=== PATIENT | female | born 1935 | race Caucasian/White ===

== ENCOUNTER 2020-11-09 16:45 | Inpatient (IN) | payer OTHER, MEDICARE ==
[2020-11-09 20:07] LABS: INR 0.92 (0.83-1.09); PROTHROMBIN TIME (PATIENT) 11.3 SEC (9.7-13.0)
[2020-11-09 20:09] LABS: ACTIVATED PTT 26.3 SECONDS (25.2-36.5)
[2020-11-09 20:20] LABS: POTASSIUM 5.5 mmol/L (3.5-5.1)
[2020-11-09 20:22] LABS: CALCIUM 9.2 mg/dL (8.5-10.1)
[2020-11-09 20:23] LABS: ALBUMIN 3.8 g/dl (3.4-5.0)
[2020-11-09 20:26] LABS: CREATININE 1.2 mg/dL (0.55-1.3)
[2020-11-09 20:27] LABS: BILIRUBIN,TOTAL 0.5 mg/dL (0.2-1)
[2020-11-09 20:28] LABS: TOT PROT 6.7 g/dl (6.4-8.2)
[2020-11-09 20:33] LABS: BASO % 1.4 % (0-2.0); EOS % 2.9 % (0-4.5); HEMOGLOBIN 12.9 GM/dL (10.7-15.3); LYMPH % 21.6 % (8-40); MCH 30.6 pg (25.7-33.7); MCHC 32.2 g/dl (32.0-36.0); MEAN PLT VOLUME 10.6 fl (7.5-11.1); NEUT % 65.1 % (42.8-82.8); PLATELET COUNT 192 K/MM3 (134-434); RBC 4.21 M/mm3 (3.60-5.2); RDW 13.8 % (11.6-15.6); WHITE BLOOD COUNT 8.7 K/mm3 (4.0-10.0)
[2020-11-09 22:06] LABS: CALCIUM 9.6 mg/dL (8.5-10.1)
[2020-11-09 22:07] LABS: BLOOD UREA NITROGEN 29.5 mg/dL (7-18); POTASSIUM 4.3 mmol/L (3.5-5.1)
[2020-11-09 22:10] LABS: CREATININE 1.1 mg/dL (0.55-1.3)
[2020-11-09 22:45] LABS: EPI CELLS 13 /uL (0-25.1); HYALINE CASTS 3 /uL (0-3.1); URINE APPEARANCE CLOUDY; URINE BACTERIA 8181 /uL (0-1359); URINE BILIRUBIN NEGATIVE (NEGATIVE); URINE COLOR YELLOW; URINE GLUCOSE (UA) NEGATIVE (NEGATIVE); URINE KETONE TRACE (NEGATIVE); URINE LEUK ESTERASE 2+ (NEGATIVE); URINE NITRITE POSITIVE (NEGATIVE); URINE PROTEIN TRACE (NEGATIVE); URINE UROBILINOGEN 0.2 mg/dL (0.2-1.0); URINE WBC 265 /uL (0-25.8)
[2020-11-09 23:22] LABS: URINE RBC 34 /uL (0-23.9)
[2020-11-09 23:24] LABS: URINE CRYSTALS NEGATIVE /hpf
[2020-11-09] MEDS ORDERED: ACETAMINOPHEN 325 MG TABLET (FP) PO PRN (23:26)
[2020-11-10 03:44] VITALS: BMI 30.6
[2020-11-10] MEDS: INSULIN SLIDING SCALE (NOVOLOG) 1 VIAL SQ SCH ×4 (06:04→21:37)
[2020-11-10 08:58] LABS: BASO % 1.1 % (0-2.0); EOS % 3.4 % (0-4.5); HEMATOCRIT 38.5 % (32.4-45.2); HEMOGLOBIN 12.9 GM/dL (10.7-15.3); LYMPH % 18.5 % (8-40); MCH 31.4 pg (25.7-33.7); MCHC 33.4 g/dl (32.0-36.0); MEAN CELL VOLUME 93.9 fl (80-96); MEAN PLT VOLUME 10.2 fl (7.5-11.1); MONO % 8.4 % (3.8-10.2); NEUT % 68.6 % (42.8-82.8); PLATELET COUNT 199 K/MM3 (134-434); RDW 13.8 % (11.6-15.6); WHITE BLOOD COUNT 8.7 K/mm3 (4.0-10.0)
[2020-11-10 09:17] LABS: POTASSIUM 4.3 mmol/L (3.5-5.1)
[2020-11-10 09:20] LABS: BLOOD UREA NITROGEN 25.6 mg/dL (7-18)
[2020-11-10 09:23] LABS: MAGNESIUM 1.9 mg/dL (1.8-2.4)
[2020-11-10 09:25] LABS: PHOSPHOROUS 3.6 mg/dL (2.5-4.9)
[2020-11-10] MEDS ORDERED: ACETAMINOPHEN 325 MG TABLET (FP) PO PRN (09:39)
[2020-11-10] MEDS ORDERED: INSULIN (NOVOLOG) ASPART 100 UNITS/ML 10ML VIAL ONE (10:16)
[2020-11-10] MEDS: SODIUM CHLORIDE 0.45% 1,000 ML IV SCH (10:38)
[2020-11-10] MEDS: ENOXAPARIN NA (PORCINE) 40 MG/0.4 ML DISP.SYRIN SQ SCH (10:39)
[2020-11-10] MEDS ORDERED: CEFTRIAXONE 1 GM in DEXTROSE 5%-WATER - 50 ML IVPB SCH (11:45)
[2020-11-10] MEDS: CEFTRIAXONE 1 GM in DEXTROSE 5%-WATER - 50 ML IVPB SCH (18:56)
[2020-11-11] MEDS: INSULIN SLIDING SCALE (NOVOLOG) 1 VIAL SQ SCH ×4 (06:11→22:11)
[2020-11-11] MEDS ORDERED: DEXTROSE 5%-WATER - 50 ML IVPB ONE (08:35)
[2020-11-11] MEDS ORDERED: cefTRIAXone SODIUM 1 GM VIAL ONE (08:35)
[2020-11-11] MEDS: ENOXAPARIN NA (PORCINE) 40 MG/0.4 ML DISP.SYRIN SQ SCH (09:11)
[2020-11-11] MEDS: CEFTRIAXONE 1 GM in DEXTROSE 5%-WATER - 50 ML IVPB SCH (09:11)
[2020-11-11 10:43] LABS: BASO % 1.4 % (0-2.0); EOS % 3.7 % (0-4.5); HEMATOCRIT 36.9 % (32.4-45.2); HEMOGLOBIN 12.3 GM/dL (10.7-15.3); LYMPH % 17.8 % (8-40); MCH 31.2 pg (25.7-33.7); MCHC 33.3 g/dl (32.0-36.0); MEAN CELL VOLUME 93.7 fl (80-96); MEAN PLT VOLUME 10.1 fl (7.5-11.1); MONO % 8.1 % (3.8-10.2); PLATELET COUNT 201 K/MM3 (134-434); RBC 3.94 M/mm3 (3.60-5.2); RDW 13.8 % (11.6-15.6); WHITE BLOOD COUNT 8.4 K/mm3 (4.0-10.0)
[2020-11-11 11:01] LABS: POTASSIUM 4.4 mmol/L (3.5-5.1)
[2020-11-11 11:02] LABS: CALCIUM 8.6 mg/dL (8.5-10.1)
[2020-11-11 11:03] LABS: BLOOD UREA NITROGEN 22.8 mg/dL (7-18)
[2020-11-11 11:04] LABS: MAGNESIUM 1.7 mg/dL (1.8-2.4)
[2020-11-11 11:06] LABS: PHOSPHOROUS 4.1 mg/dL (2.5-4.9)
[2020-11-11] MEDS ORDERED: MAGNESIUM SULF 50% (8.12 MEQ/2 ML-1 GM VIAL) IVPB ONE (13:55)
[2020-11-11] MEDS: SODIUM CHLORIDE 0.45% 1,000 ML IV SCH (17:41)
[2020-11-12] MEDS: INSULIN SLIDING SCALE (NOVOLOG) 1 VIAL SQ SCH ×4 (06:20→22:07)
[2020-11-12] MEDS ORDERED: cefTRIAXone SODIUM 1 GM VIAL ONE (09:46)
[2020-11-12] MEDS ORDERED: DEXTROSE 5%-WATER - 50 ML IVPB ONE (09:47)
[2020-11-12] MEDS: CEFTRIAXONE 1 GM in DEXTROSE 5%-WATER - 50 ML IVPB SCH (09:49)
[2020-11-12] MEDS: ENOXAPARIN NA (PORCINE) 40 MG/0.4 ML DISP.SYRIN SQ SCH (09:49)
[2020-11-12] MEDS: CARBIDOPA/LEVODOPA 25/250 TABLET (FP) PO SCH (22:02)
[2020-11-13] MEDS: INSULIN SLIDING SCALE (NOVOLOG) 1 VIAL SQ SCH ×3 (06:26→18:06)
[2020-11-13] MEDS ORDERED: cefTRIAXone SODIUM 1 GM VIAL ONE (09:15)
[2020-11-13] MEDS ORDERED: PT OWN MED DRAWER 7, Y5N ONE ×3 (09:15→14:39)
[2020-11-13] MEDS ORDERED: DEXTROSE 5%-WATER - 50 ML IVPB ONE (09:16)
[2020-11-13] MEDS: SODIUM CHLORIDE 0.45% 1,000 ML IV SCH (09:54)
[2020-11-13] MEDS: CARBIDOPA/LEVODOPA 25/250 TABLET (FP) PO SCH ×3 (09:54→18:07)
[2020-11-13] MEDS: ENOXAPARIN NA (PORCINE) 40 MG/0.4 ML DISP.SYRIN SQ SCH (09:54)
[2020-11-13] MEDS: CEFTRIAXONE 1 GM in DEXTROSE 5%-WATER - 50 ML IVPB SCH (09:54)
[2020-11-13 15:01] VITALS: BP 145/74; PULSE 65; TEMP 98.6
== END 2020-11-13 21:58 | DRG 57 ==
LOC: JER 16:45 → JERBED 21:01 → J6S 11-10 02:39
PROVIDERS: ADMIT Hospitalist; ATTEND Internal Medicine
DX: G20 Parkinson's disease (principal); N39.0 Urinary tract infection, site not specified; R29.6 Repeated falls; F17.210 Nicotine dependence, cigarettes, uncomplicated; E78.5 Hyperlipidemia, unspecified; I10 Essential (primary) hypertension; E03.9 Hypothyroidism, unspecified; E11.42 Type 2 diabetes mellitus with diabetic polyneuropathy; E86.0 Dehydration
CPT/HCPCS: 36415; 70551-TC; 71045-TC-FY; 72192-TC; 73552-TC-RT-FY; 80048; 80053; 81003; 82607; 82962; 83735; 84100; 84443; 85025; 85610; 85730; 86780; 86850; 86900; 86901; 87086; 87186; 93005; 93010; 97116-GP; 97162-GP; 99285-25; C9803; U0003; U0005

== ENCOUNTER 2021-10-02 13:12 | Emergency (ER) | payer OTHER, MEDICARE ==
[2021-10-02 13:39] VITALS: BMI 32.5
[2021-10-02] MEDS ORDERED: DIPHTH,PERTUSS(ACELL),TET 0.5 ML DISP.SYRIN IM ONE (14:39)
[2021-10-02 17:56] LABS: BASO % 0.7 % (0-2.0); EOS % 0.6 % (0-4.5); HEMATOCRIT 40.5 % (32.4-45.2); HEMOGLOBIN 13.2 GM/dL (10.7-15.3); LYMPH % 16.7 % (8-40); MCH 29.7 pg (25.7-33.7); MCHC 32.7 g/dl (32.0-36.0); MEAN CELL VOLUME 90.9 fl (80-96); MEAN PLT VOLUME 8.6 fl (7.5-11.1); MONO % 6.9 % (3.8-10.2); NEUT % 75.1 % (42.8-82.8); PLATELET COUNT 214 10^3/uL (134-434); RBC 4.46 M/mm3 (3.60-5.2); RDW 14.9 % (11.6-15.6); WHITE BLOOD COUNT 11.7 K/mm3 (4.0-10.0)
[2021-10-02 18:01] LABS: INR 0.95 (0.83-1.09); PROTHROMBIN TIME (PATIENT) 10.9 SEC (9.7-13.0)
[2021-10-02 18:04] LABS: ACTIVATED PTT 28.9 SECONDS (25.2-36.5)
[2021-10-02 18:26] LABS: CALCIUM 9.3 mg/dL (8.5-10.1)
[2021-10-02 18:27] LABS: BLOOD UREA NITROGEN 23.4 mg/dL (7-18); MAGNESIUM 1.9 mg/dL (1.8-2.4)
[2021-10-02 18:30] LABS: CREATININE 1.2 mg/dL (0.55-1.3); PHOSPHOROUS 3.2 mg/dL (2.5-4.9)
[2021-10-02 18:31] LABS: BILIRUBIN,TOTAL 0.5 mg/dL (0.2-1); TOT PROT 7.5 g/dl (6.4-8.2)
[2021-10-02 18:35] VITALS: BP 162/68; PULSE 74; TEMP 98.7
== END 2021-10-02 18:55 | disposition short-term general hospital (02) ==
LOC: JER 13:12
PROC: 3E0234Z Introduction of Serum, Toxoid and Vaccine into Muscle, Percutaneous Approach (ICD-10-PCS; principal; 2021-10-02)
DX: S00.03XA Contusion of scalp, initial encounter (principal); S06.360A Traumatic hemorrhage of cerebrum, unspecified, without loss of consciousness, initial encounter; W05.0XXA Fall from non-moving wheelchair, initial encounter
CPT/HCPCS: 36415; 70450-TC; 71046-TC-FY; 71101-TC-LT-FY; 72125-TC; 72170-TC-FY; 80053; 82962; 83735; 84100; 85025; 85610; 85730; 90471; 90715; 93005; 93010; 99285-25; C9803; U0003; U0005

== ENCOUNTER 2022-01-05 14:42 | Emergency (ER) | payer OTHER, MEDICARE ==
[2022-01-05 14:48] VITALS: TEMP 97.2; BMI 32.1
[2022-01-05] MEDS ORDERED: CEFTRIAXONE 1 GM in DEXTROSE 5%-WATER - 100 ML IVPB ONE (15:50)
[2022-01-05] MEDS ORDERED: ACETAMINOPHEN 500 MG TABLET (FP) PO ONE (15:51)
[2022-01-05] MEDS ORDERED: CEFTRIAXONE 1 GM/50 ML BAG ONE (15:53)
[2022-01-05] MEDS ORDERED: ACETAMINOPHEN 325 MG TABLET (FP) ONE (15:53)
[2022-01-05 16:43] VITALS: BP 119/78; PULSE 99
[2022-01-05] MEDS ORDERED: AMOX TR/POT CLAV 875MG/125MG TABLETS (FP) PO ONE (16:55)
[2022-01-05] MEDS ORDERED: AMOX TR/POT CLAV 875MG/125MG TABLETS (FP) ONE (17:00)
== END 2022-01-05 17:39 | disposition home or self-care (01) ==
LOC: JER 14:42
DX: S50.811A Abrasion of right forearm, initial encounter (principal); W55.03XA Scratched by cat, initial encounter
CPT/HCPCS: 96374; 99284-25

== ENCOUNTER 2022-06-18 09:24 | Emergency (ER) | payer OTHER, MEDICARE ==
[2022-06-18] MEDS ORDERED: CEFTRIAXONE 1,000 MG in DEXTROSE 5%-WATER - 50 ML IVPB ONE (10:25)
[2022-06-18] MEDS ORDERED: cefTRIAXone SODIUM 1 GM VIAL ONE (10:51)
[2022-06-18 10:55] LABS: EPITHELIAL CELLS MODERATE /hpf
[2022-06-18 11:03] LABS: HEMATOCRIT 42.7 % (32.4-45.2); HEMOGLOBIN 13.9 G/dL (10.7-15.3); MCH 30.2 pg (25.7-33.7); MCHC 32.5 g/dl (32.0-36.0); MEAN CELL VOLUME 92.8 fl (80-96); MEAN PLT VOLUME 9.6 fl (7.5-11.1); PLATELET COUNT 212.6 10^3/uL (134-434); RDW 14.5 % (11.6-15.6); WHITE BLOOD COUNT 20.1 10^3/uL (4.0-10.8)
[2022-06-18 11:08] LABS: ALBUMIN 3.8 g/dl (3.4-5.0); BILIRUBIN,TOTAL 0.9 mg/dl (0.2-1); CALCIUM 8.9 mg/dl (8.5-10); CREATININE 1.2 mg/dl (0.55-1.3); TOT PROT 6.8 g/dl (6.4-8.2)
[2022-06-18 11:17] LABS: PLATELET ESTIMATE ADEQUATE
[2022-06-18] MEDS ORDERED: SODIUM CHLORIDE 0.9% 500 ML INFUS.BAG IV ONE (11:20)
[2022-06-18] MEDS ORDERED: ACETAMINOPHEN 1000 MG/100 ML BAG IVPB ONE (11:43)
[2022-06-18] MEDS ORDERED: ACETAMINOPHEN INJECTION 100 ML IVPB ONE ×2 (12:41→23:51)
[2022-06-18 12:51] LABS: VENOUS BASE EXCESS 0.1 mmol/L (-2-2); VENOUS O2 SATURATION 75.9 % (70-80); VENOUS PCO2 61.9 mmHg (38-52); VENOUS PH 7.28 (7.310-7.410)
[2022-06-18] MEDS ORDERED: CARBIDOPA/LEVODOPA 25/250 TABLET (FP) PO SCH (18:00)
[2022-06-18] MEDS: INSULIN SLIDING SCALE (NOVOLOG) 1 VIAL SQ SCH (18:33)
[2022-06-18] MEDS: CARBIDOPA/LEVODOPA 25/250 TABLET (FP) PO SCH (18:37)
[2022-06-18] MEDS ORDERED: ATORVASTATIN CA 10 MG TABLET (FP) PO SCH (22:00)
[2022-06-18] MEDS ORDERED: INSULIN (NOVOLOG) ASPART 100 UNITS/ML 10ML VIAL ONE (23:53)
[2022-06-19] MEDS: CARBIDOPA/LEVODOPA 25/250 TABLET (FP) PO SCH ×2 (00:09→10:45)
[2022-06-19] MEDS: INSULIN SLIDING SCALE (NOVOLOG) 1 VIAL SQ SCH ×3 (00:37→11:15)
[2022-06-19] MEDS: RIVASTIGMINE TARTRATE 1.5 MG CAPSULE PO SCH ×2 (04:02→10:45)
[2022-06-19] MEDS ORDERED: LEVOTHYROXINE NA 75 MCG TABLET (FP) PO SCH ×2 (07:00→10:00)
[2022-06-19 08:05] LABS: HEMATOCRIT 39.7 % (32.4-45.2); HEMOGLOBIN 12.8 G/dL (10.7-15.3); MCH 30.3 pg (25.7-33.7); MCHC 32.2 g/dl (32.0-36.0); MEAN CELL VOLUME 93.9 fl (80-96); MEAN PLT VOLUME 9.9 fl (7.5-11.1); PLATELET COUNT 156.3 10^3/uL (134-434); RBC 4.23 10^6/uL (3.60-5.2); RDW 14.2 % (11.6-15.6); WHITE BLOOD COUNT 16.4 10^3/uL (4.0-10.8)
[2022-06-19 08:13] LABS: ALBUMIN 3.2 g/dl (3.4-5.0); BILIRUBIN,TOTAL 0.8 mg/dl (0.2-1); CALCIUM 8.7 mg/dl (8.5-10); CREATININE 1.1 mg/dl (0.55-1.3); MAGNESIUM 1.7 mg/dL (1.8-2.4); PHOSPHOROUS 3.8 mg/dl (2.5-4.9); TOT PROT 6.3 g/dl (6.4-8.2)
[2022-06-19] MEDS ORDERED: ENOXAPARIN NA (PORCINE) 40 MG/0.4 ML DISP.SYRIN SQ SCH (10:00)
[2022-06-19] MEDS ORDERED: ESCITALOPRAM OXALATE 10 MG TABLET PO SCH (10:00)
[2022-06-19] MEDS ORDERED: CEFTRIAXONE 1 GM in DEXTROSE 5%-WATER - 50 ML IVPB SCH (10:00)
[2022-06-19] MEDS ORDERED: LISINOPRIL 10 MG TABLET PO SCH (10:00)
[2022-06-19] MEDS ORDERED: amLODIPine BESYLATE 5 MG TABLET (FP) PO SCH (10:00)
[2022-06-19] MEDS ORDERED: cefTRIAXone SODIUM 1 GM VIAL ONE (10:58)
[2022-06-19 15:07] VITALS: BP 128/50; PULSE 74; RESP 19; TEMP 98.7
== END 2022-06-19 15:25 | disposition home or self-care (01) ==
LOC: FER 09:24
PROC: 3E0333Z Introduction of Anti-inflammatory into Peripheral Vein, Percutaneous Approach (ICD-10-PCS; principal; 2022-06-18)
PROC: 3E03329 Introduction of Other Anti-infective into Peripheral Vein, Percutaneous Approach (ICD-10-PCS; 2022-06-18)
PROC: 3E03329 Introduction of Other Anti-infective into Peripheral Vein, Percutaneous Approach (ICD-10-PCS; 2022-06-18)
DX: U07.1 COVID-19 (principal); N39.0 Urinary tract infection, site not specified; R41.82 Altered mental status, unspecified
CPT/HCPCS: 36415; 70450-TC; 71045-TC-FY; 80053; 81003; 81015; 82607; 82803; 82962; 83735; 84100; 84439; 84443; 84484; 85027; 87040; 87086; 87186; 93005; 99285-25; C9803-CS; U0003; U0005

== ENCOUNTER 2023-07-17 18:31 | Inpatient (IN) | payer OTHER, MEDICARE ==
[2023-07-17] MEDS ORDERED: methylPREDNISolone NA SUCC 125 MG/2 ML VIAL IVPUSH ONE (18:39)
[2023-07-17] MEDS: ALBUTEROL SO4 2.5/IPRATROPIUM 0.5 INH SOL 3 ML VIAL.NEB. NEB SCH ×4 (18:45→19:30)
[2023-07-17] MEDS ORDERED: ALBUTEROL SO4 2.5/IPRATROPIUM 0.5 INH SOL 3 ML VIAL.NEB. NEB ONE (19:06)
[2023-07-17] MEDS ORDERED: methylPREDNISolone NA SUCC 125 MG/2 ML VIAL ONE (19:06)
[2023-07-17 20:06] LABS: ALBUMIN 3.8 g/dl (3.4-5.0); BILIRUBIN,TOTAL 0.5 mg/dl (0.2-1); CREATININE 1.5 mg/dl (0.6-1.3); MAGNESIUM 1.9 mg/dL (1.8-2.4); POTASSIUM 4.5 mmol/L (3.5-5.1); TOT PROT 6.5 g/dl (6.4-8.2)
[2023-07-17 20:07] LABS: HEMATOCRIT 46.4 % (32.4-45.2); HEMOGLOBIN 14.4 G/dL (10.7-15.3); MCH 28.5 pg (25.7-33.7); MEAN CELL VOLUME 91.8 fl (80-96); MEAN PLT VOLUME 10.5 fl (7.5-11.1); RBC 5.05 10^6/uL (3.60-5.2); RDW 15.7 % (11.6-15.6); WHITE BLOOD COUNT 18.9 10^3/uL (4.0-10.8)
[2023-07-17] MEDS ORDERED: AZITHROMYCIN IVPB 500 MG in DEXTROSE 5%-WATER - 250 ML IVPB ONE (20:16)
[2023-07-17] MEDS ORDERED: cefTRIAXone SODIUM 1 GM VIAL ONE (20:20)
[2023-07-17] MEDS ORDERED: AZITHROMYCIN 500 MG VIAL IVPB ONE (20:20)
[2023-07-17 20:38] LABS: PLATELET ESTIMATE ADEQUATE
[2023-07-17 20:59] LABS: VENOUS BASE EXCESS 0.4 mmol/L (-2-2); VENOUS PCO2 53.6 mmHg (38-52); VENOUS PH 7.326 (7.310-7.410)
[2023-07-18] MEDS ORDERED: FUROSEMIDE 40 MG/4 ML INJECTABLE VIAL IVPUSH ONE (00:21)
[2023-07-18] MEDS ORDERED: FUROSEMIDE 40 MG/4 ML INJECTABLE VIAL ONE (00:25)
[2023-07-18] MEDS ORDERED: DOCUSATE SODIUM 100 MG CAPSULE (FP) PO PRN (02:15)
[2023-07-18] MEDS ORDERED: guaiFENesin/D-M SUGAR-FREE/ACLHOL-FREE (200 MG/10 MG) 5 ML PO PRN (03:59)
[2023-07-18] MEDS ORDERED: guaiFENesin 600 MG TABLET.ER (FP) PO PRN (04:08)
[2023-07-18] MEDS: methylPREDNISolone NA SUCC 40 MG/1 ML VIAL IVPUSH SCH ×4 (04:45→18:10)
[2023-07-18 06:45] VITALS: BMI 32.5
[2023-07-18] MEDS: LEVOTHYROXINE NA 75 MCG TABLET (FP) PO SCH (06:47)
[2023-07-18] MEDS: INSULIN SLIDING SCALE (NOVOLOG) 1 VIAL SQ SCH ×4 (06:57→23:26)
[2023-07-18 08:45] LABS: HEMATOCRIT 41.5 % (32.4-45.2); HEMOGLOBIN 13.4 G/dL (10.7-15.3); MCH 29.7 pg (25.7-33.7); MCHC 32.3 g/dl (32.0-36.0); MEAN CELL VOLUME 91.9 fl (80-96); MEAN PLT VOLUME 11.2 fl (7.5-11.1); PLATELET COUNT 90.1 10^3/uL (134-434); RBC 4.52 10^6/uL (3.60-5.2); RDW 15.2 % (11.6-15.6); WHITE BLOOD COUNT 17.6 10^3/uL (4.0-10.8)
[2023-07-18] MEDS ORDERED: SODIUM CHLORIDE NASAL SPRAY 44 ML BOTTLE NS PRN (09:21)
[2023-07-18] MEDS: ASCORBIC ACID 500 MG TABLET (FP) PO SCH (09:38)
[2023-07-18] MEDS: CHOLECALCIFEROL (VIT D3) 1,000 UNIT (25 MCG) TABLET PO SCH (09:38)
[2023-07-18] MEDS: ESCITALOPRAM OXALATE 10 MG TABLET PO SCH (09:38)
[2023-07-18] MEDS: amLODIPine BESYLATE 5 MG TABLET (FP) PO SCH (09:38)
[2023-07-18] MEDS: FLUTICASONE PROP 0.05% 16 GM NASAL SPRAY NS SCH (09:40)
[2023-07-18] MEDS: BUDESONIDE/FORMETEROL FUMARATE 160/4.5 mcg INHALER IH SCH ×2 (09:41→21:30)
[2023-07-18] MEDS ORDERED: CEFTRIAXONE 1 GM in DEXTROSE 5%-WATER - 50 ML IVPB SCH (10:00)
[2023-07-18] MEDS ORDERED: FUROSEMIDE 40 MG/4 ML INJECTABLE VIAL IVPUSH SCH (10:00)
[2023-07-18] MEDS: RIVASTIGMINE TARTRATE 1.5 MG CAPSULE PO SCH ×2 (11:47→22:25)
[2023-07-18] MEDS: ACETAMINOPHEN 325 MG TABLET (FP) PO PRN (22:24)
[2023-07-18] MEDS: ATORVASTATIN CA 10 MG TABLET (FP) PO SCH (22:25)
[2023-07-18] MEDS: ALBUTEROL SO4 0.083% IH SOL 2.5 MG/3 ML VIAL.NEB. NEB PRN (22:28)
[2023-07-19] MEDS: methylPREDNISolone NA SUCC 40 MG/1 ML VIAL IVPUSH SCH ×3 (02:52→17:43)
[2023-07-19] MEDS: LEVOTHYROXINE NA 75 MCG TABLET (FP) PO SCH (07:09)
[2023-07-19] MEDS: INSULIN SLIDING SCALE (NOVOLOG) 1 VIAL SQ SCH ×4 (07:09→21:57)
[2023-07-19] MEDS: ACETAMINOPHEN 325 MG TABLET (FP) PO PRN (07:09)
[2023-07-19 09:56] LABS: BILIRUBIN,TOTAL 0.3 mg/dl (0.2-1); CALCIUM 9.6 mg/dl (8.5-10.1); CREATININE 1.5 mg/dl (0.6-1.3); PHOSPHOROUS 4.7 (2.5-4.9); POTASSIUM 4.6 mmol/L (3.5-5.1)
[2023-07-19] MEDS: CHOLECALCIFEROL (VIT D3) 1,000 UNIT (25 MCG) TABLET PO SCH (10:04)
[2023-07-19] MEDS: ASCORBIC ACID 500 MG TABLET (FP) PO SCH (10:04)
[2023-07-19] MEDS: ESCITALOPRAM OXALATE 10 MG TABLET PO SCH (10:05)
[2023-07-19] MEDS: amLODIPine BESYLATE 5 MG TABLET (FP) PO SCH (10:05)
[2023-07-19] MEDS: RIVASTIGMINE TARTRATE 1.5 MG CAPSULE PO SCH ×2 (10:07→21:57)
[2023-07-19] MEDS: FLUTICASONE PROP 0.05% 16 GM NASAL SPRAY NS SCH (10:08)
[2023-07-19 10:57] LABS: HEMATOCRIT 42.1 % (32.4-45.2); HEMOGLOBIN 13.8 GM/dL (10.7-15.3); MCH 29.3 pg (25.7-33.7); MCHC 32.7 g/dl (32.0-36.0); MEAN CELL VOLUME 89.8 fl (80-96); MEAN PLT VOLUME 10.9 fl (7.5-11.1); PLATELET COUNT 237 10^3/uL (134-434); RBC 4.69 M/mm3 (3.60-5.2); RDW 14.9 % (11.6-15.6); WHITE BLOOD COUNT 17.7 K/mm3 (4.0-10.0)
[2023-07-19 12:08] LABS: ANISOCYTOSIS 0; HELMET CELLS 0; HOWELL-JOLLY BODIES 0; MACROCYTOSIS 0; OVALOCYTE 0; ROULEAU 0; SICKELED CELLS 0; TARGET CELLS 0; TEAR DROP CELLS 0; TOXIC GRANULATION 0
[2023-07-19] MEDS: FLUTICASONE/UMECLIDIN/VILANTER(200-62.5-25 TRELEGY ELLIPTA) INAHLER IH SCH (12:18)
[2023-07-19] MEDS: ATORVASTATIN CA 10 MG TABLET (FP) PO SCH (21:57)
[2023-07-20] MEDS: methylPREDNISolone NA SUCC 40 MG/1 ML VIAL IVPUSH SCH ×3 (01:50→17:33)
[2023-07-20] MEDS: INSULIN SLIDING SCALE (NOVOLOG) 1 VIAL SQ SCH ×4 (06:48→21:14)
[2023-07-20] MEDS: LEVOTHYROXINE NA 75 MCG TABLET (FP) PO SCH (06:49)
[2023-07-20] MEDS: amLODIPine BESYLATE 5 MG TABLET (FP) PO SCH (09:52)
[2023-07-20] MEDS: CHOLECALCIFEROL (VIT D3) 1,000 UNIT (25 MCG) TABLET PO SCH (09:53)
[2023-07-20] MEDS: RIVASTIGMINE TARTRATE 1.5 MG CAPSULE PO SCH ×2 (09:53→21:14)
[2023-07-20] MEDS: ASCORBIC ACID 500 MG TABLET (FP) PO SCH (09:53)
[2023-07-20] MEDS: ESCITALOPRAM OXALATE 10 MG TABLET PO SCH (09:53)
[2023-07-20] MEDS: FLUTICASONE/UMECLIDIN/VILANTER(200-62.5-25 TRELEGY ELLIPTA) INAHLER IH SCH (09:57)
[2023-07-20] MEDS: FLUTICASONE PROP 0.05% 16 GM NASAL SPRAY NS SCH (09:57)
[2023-07-20] MEDS: HEPARIN NA (PORCINE) 5,000 UNITS/ML 1ML VIAL SQ SCH ×2 (13:50→21:14)
[2023-07-20] MEDS: ALBUTEROL SO4 0.083% IH SOL 2.5 MG/3 ML VIAL.NEB. NEB PRN (17:33)
[2023-07-20] MEDS: ATORVASTATIN CA 10 MG TABLET (FP) PO SCH (21:14)
[2023-07-21] MEDS: methylPREDNISolone NA SUCC 40 MG/1 ML VIAL IVPUSH SCH (01:40)
[2023-07-21] MEDS: LEVOTHYROXINE NA 75 MCG TABLET (FP) PO SCH (06:29)
[2023-07-21] MEDS: INSULIN SLIDING SCALE (NOVOLOG) 1 VIAL SQ SCH ×4 (06:29→21:03)
[2023-07-21] MEDS: HEPARIN NA (PORCINE) 5,000 UNITS/ML 1ML VIAL SQ SCH ×3 (06:29→21:10)
[2023-07-21] MEDS: ALBUTEROL SO4 0.083% IH SOL 2.5 MG/3 ML VIAL.NEB. NEB PRN (08:30)
[2023-07-21 08:56] LABS: ALBUMIN 3.6 g/dl (3.4-5.0); BILIRUBIN,TOTAL 0.4 mg/dl (0.2-1); CALCIUM 8.9 mg/dl (8.5-10.1); CREATININE 1.4 mg/dl (0.6-1.3); POTASSIUM 4.7 mmol/L (3.5-5.1)
[2023-07-21 08:57] LABS: HEMOGLOBIN 13.3 GM/dL (10.7-15.3); MCH 29.2 pg (25.7-33.7); MCHC 32.4 g/dl (32.0-36.0); MEAN CELL VOLUME 90.2 fl (80-96); MEAN PLT VOLUME 9.4 fl (7.5-11.1); PLATELET COUNT 229 10^3/uL (134-434); RBC 4.54 M/mm3 (3.60-5.2); RDW 14.5 % (11.6-15.6); WHITE BLOOD COUNT 12.8 K/mm3 (4.0-10.0)
[2023-07-21] MEDS: CHOLECALCIFEROL (VIT D3) 1,000 UNIT (25 MCG) TABLET PO SCH (09:38)
[2023-07-21] MEDS: ASCORBIC ACID 500 MG TABLET (FP) PO SCH (09:38)
[2023-07-21] MEDS: predniSONE 20 MG TABLET (UD) PO SCH ×2 (09:38→21:09)
[2023-07-21] MEDS: ESCITALOPRAM OXALATE 10 MG TABLET PO SCH (09:38)
[2023-07-21] MEDS: RIVASTIGMINE TARTRATE 1.5 MG CAPSULE PO SCH ×2 (09:38→21:09)
[2023-07-21] MEDS: amLODIPine BESYLATE 5 MG TABLET (FP) PO SCH (09:45)
[2023-07-21 09:50] LABS: ANISOCYTOSIS 1+; MACROCYTOSIS 0
[2023-07-21] MEDS: FLUTICASONE/UMECLIDIN/VILANTER(200-62.5-25 TRELEGY ELLIPTA) INAHLER IH SCH (14:33)
[2023-07-21] MEDS: FLUTICASONE PROP 0.05% 16 GM NASAL SPRAY NS SCH (14:34)
[2023-07-21] MEDS: ALBUTEROL SO4 2.5/IPRATROPIUM 0.5 INH SOL 3 ML VIAL.NEB. NEB SCH ×2 (15:29→21:10)
[2023-07-21] MEDS: ATORVASTATIN CA 10 MG TABLET (FP) PO SCH (21:09)
[2023-07-21] MEDS: ACETAMINOPHEN 325 MG TABLET (FP) PO PRN (21:10)
[2023-07-21] MEDS ORDERED: INSULIN (LEVEMIR) 100 UNITS/ML UNITS SQ SCH (22:00)
[2023-07-22] MEDS: HEPARIN NA (PORCINE) 5,000 UNITS/ML 1ML VIAL SQ SCH ×2 (06:25→16:25)
[2023-07-22] MEDS: LEVOTHYROXINE NA 75 MCG TABLET (FP) PO SCH (06:26)
[2023-07-22] MEDS: INSULIN SLIDING SCALE (NOVOLOG) 1 VIAL SQ SCH ×3 (06:26→18:26)
[2023-07-22 08:10] LABS: HEMATOCRIT 42.2 % (32.4-45.2); HEMOGLOBIN 13.4 G/dL (10.7-15.3); MCHC 31.6 g/dl (32.0-36.0); MEAN CELL VOLUME 91.7 fl (80-96); MEAN PLT VOLUME 9.6 fl (7.5-11.1); PLATELET COUNT 254.3 10^3/uL (134-434); WHITE BLOOD COUNT 13.7 10^3/uL (4.0-10.8)
[2023-07-22 08:57] LABS: ALBUMIN 3.6 g/dl (3.4-5.0); BILIRUBIN,TOTAL 0.4 mg/dl (0.2-1); CREATININE 1.2 mg/dl (0.6-1.3); MAGNESIUM 1.9 mg/dL (1.8-2.4); PHOSPHOROUS 4.3 (2.5-4.9); POTASSIUM 4.4 mmol/L (3.5-5.1); TOT PROT 5.9 g/dl (6.4-8.2)
[2023-07-22] MEDS: ALBUTEROL SO4 2.5/IPRATROPIUM 0.5 INH SOL 3 ML VIAL.NEB. NEB SCH ×4 (09:48→19:56)
[2023-07-22] MEDS: RIVASTIGMINE TARTRATE 1.5 MG CAPSULE PO SCH (09:49)
[2023-07-22] MEDS: ESCITALOPRAM OXALATE 10 MG TABLET PO SCH (09:49)
[2023-07-22] MEDS: amLODIPine BESYLATE 5 MG TABLET (FP) PO SCH (09:49)
[2023-07-22] MEDS: ASCORBIC ACID 500 MG TABLET (FP) PO SCH (09:50)
[2023-07-22] MEDS: predniSONE 20 MG TABLET (UD) PO SCH (09:50)
[2023-07-22] MEDS: CHOLECALCIFEROL (VIT D3) 1,000 UNIT (25 MCG) TABLET PO SCH (09:50)
[2023-07-22] MEDS: FLUTICASONE PROP 0.05% 16 GM NASAL SPRAY NS SCH (09:53)
[2023-07-22] MEDS: FLUTICASONE/UMECLIDIN/VILANTER(200-62.5-25 TRELEGY ELLIPTA) INAHLER IH SCH (09:53)
[2023-07-22 20:44] VITALS: BP 160/69; PULSE 69; RESP 18; TEMP 98.1
[2023-07-22] MEDS ORDERED: INSULIN (LEVEMIR) 100 UNITS/ML UNITS SQ SCH (22:00)
== END 2023-07-22 20:47 | disposition home or self-care (01) | DRG 194 ==
LOC: FER 18:31 → UNDOADMOB 07-18 01:36 → INTOOBSV 07-18 01:36 → FM/S 07-18 01:36 → INTOOBSV 07-18 11:28 → OBSVTOIN 07-18 11:28 → FM/S 07-20 11:28 → OBSVTOIN 07-20 11:28
PROVIDERS: ADMIT Internal Medicine; ATTEND Internal Medicine
DX: J12.1 Respiratory syncytial virus pneumonia (principal); I13.0 Hypertensive heart and chronic kidney disease with heart failure and stage 1 through stage 4 chronic kidney disease, or unspecified chronic kidney disease; I50.30 Unspecified diastolic (congestive) heart failure; R09.02 Hypoxemia; E78.5 Hyperlipidemia, unspecified; N18.9 Chronic kidney disease, unspecified; E11.22 Type 2 diabetes mellitus with diabetic chronic kidney disease; F03.90 Unspecified dementia, unspecified severity, without behavioral disturbance, psychotic disturbance, mood disturbance, and anxiety; G20.A1 Parkinson's disease without dyskinesia, without mention of fluctuations
CPT/HCPCS: 0241U-QW; 36415; 71045-TC-FY; 71250-TC; 80053; 81003; 81015; 82803; 82962; 83735; 83880; 84100; 84443; 85025; 85027; 87040; 87086; 87186; 93005; 94640; 97116-GP; 99285-25; J1644

== ENCOUNTER 2024-10-04 20:54 | Inpatient (IN) | payer OTHER, MEDICARE ==
[2024-10-04] MEDS ORDERED: PIPERACILLIN/TAZOBACTAM 4.5 GM VIAL IVPB SCH (21:30)
[2024-10-04] MEDS: SODIUM CHLORIDE 0.9% 500 ML INFUS.BAG IV ONE (21:40)
[2024-10-04] MEDS ORDERED: PIPERACILLIN/TAZOB 4.5 GM 4.5 GM in DEXTROSE 5%-WATER 100 ML IVPB SCH (22:00)
[2024-10-04] MEDS ORDERED: PIPERACILLIN/TAZOB 4.5 GM 4.5 GM/100 ML BAG IVPB SCH (22:00)
[2024-10-04 22:15] LABS: HEMATOCRIT 35.1 % (32.4-45.2); HEMOGLOBIN 10.8 GM/dL (10.7-15.3); MCH 30.3 pg (25.7-33.7); MCHC 30.7 g/dl (32.0-36.0); MEAN CELL VOLUME 98.7 fl (80-96); MEAN PLT VOLUME 9.5 fl (7.5-11.1); PLATELET COUNT 187 10^3/uL (134-434); RBC 3.55 M/mm3 (3.60-5.2); RDW 17.6 % (11.6-15.6)
[2024-10-04] MEDS ORDERED: PIPERACILLIN/TAZOB 4.5 GM 4.5 GM/100 ML BAG IVPB ONE (22:31)
[2024-10-04 22:35] LABS: POTASSIUM 5.5 mmol/L (3.5-5.1)
[2024-10-04] MEDS: PIPERACILLIN/TAZOB 4.5 GM 4.5 GM in DEXTROSE 5%-WATER 100 ML IVPB SCH (22:36)
[2024-10-04 22:37] LABS: CALCIUM 8.5 mg/dL (8.5-10.1)
[2024-10-04 22:38] LABS: ALBUMIN 3.2 g/dl (3.4-5.0); BLOOD UREA NITROGEN 34.7 mg/dL (7-18)
[2024-10-04 22:41] LABS: CREATININE 1.6 mg/dL (0.55-1.3)
[2024-10-04 22:42] LABS: BILIRUBIN,TOTAL 0.4 mg/dL (0.2-1); TOT PROT 6.1 g/dl (6.4-8.2)
[2024-10-04 22:46] LABS: N-TERMINAL BNP 816.2 pg/ml (5-450)
[2024-10-04] MEDS ORDERED: VANCOMYCIN 1 GM PREMIX (F) 1 GM/200 ML BAG ONE (23:11)
[2024-10-04] MEDS: VANCOMYCIN 1 GM PREMIX (F) 1 GM/200 ML BAG IVPB ONE (23:15)
[2024-10-05 00:05] LABS: ARTERIAL BLD GAS O2 SATURATION 91.5 % (95-98); ARTERIAL BLOOD GAS BASE EXCESS -2.7 mmol/L (-2-2); ARTERIAL BLOOD GAS PO2 79.7 mmHg (80-100)
[2024-10-05 00:13] LABS: ALLENS TEST POSITIVE; VENT RATE 14
[2024-10-05 00:14] LABS: ARTERIAL BLOOD GAS pH 7.153 (7.350-7.450)
[2024-10-05 01:17] LABS: EPI CELLS 15 /uL (0-25.1); HYALINE CASTS 1 /uL (0-3.1); URINE APPEARANCE CLOUDY; URINE BACTERIA 4 /uL (0-1359); URINE BILIRUBIN NEGATIVE (NEGATIVE); URINE COLOR YELLOW; URINE GLUCOSE (UA) NEGATIVE (NEGATIVE); URINE KETONE TRACE (NEGATIVE); URINE LEUK ESTERASE NEGATIVE (NEGATIVE); URINE NITRITE NEGATIVE (NEGATIVE); URINE PROTEIN 2+ (NEGATIVE); URINE WBC 19 /uL (0-25.8)
[2024-10-05 01:32] LABS: URINE RBC 27.5 /uL (0-23.9)
[2024-10-05] MEDS: LACTATED RINGERS SOLUTION 1,000 ML/1,000 ML INFUS.BAG IV SCH (02:17)
[2024-10-05 06:09] LABS: HEMATOCRIT 33.8 % (32.4-45.2); HEMOGLOBIN 10.3 GM/dL (10.7-15.3); MCHC 30.5 g/dl (32.0-36.0); MEAN CELL VOLUME 98.5 fl (80-96); MEAN PLT VOLUME 9.8 fl (7.5-11.1); PLATELET COUNT 182 10^3/uL (134-434); RBC 3.43 M/mm3 (3.60-5.2); RDW 16.8 % (11.6-15.6); WHITE BLOOD COUNT 8.1 K/mm3 (4.0-10.0)
[2024-10-05 06:25] LABS: POTASSIUM 4.8 mmol/L (3.5-5.1)
[2024-10-05 06:28] LABS: CALCIUM 8.6 mg/dL (8.5-10.1)
[2024-10-05 06:29] LABS: ALBUMIN 3.2 g/dl (3.4-5.0); BLOOD UREA NITROGEN 34.8 mg/dL (7-18)
[2024-10-05 06:32] LABS: CREATININE 1.7 mg/dL (0.55-1.3)
[2024-10-05 06:33] LABS: BILIRUBIN,TOTAL 0.4 mg/dL (0.2-1)
[2024-10-05] MEDS: INSULIN ASPART SLIDING SCALE (NOVOLOG) 1 VIAL SQ SCH (07:23)
[2024-10-05] MEDS ORDERED: PIPERACILLIN/TAZOB 2.25 GM 2.25 GM/50 ML BAG IVPB ONE (07:29)
[2024-10-05] MEDS: PIPERACILLIN/TAZOB 2.25 GM 2.25 GM/50 ML BAG IVPB SCH (07:38)
[2024-10-05] MEDS ORDERED: ALBUTEROL SO4 2.5/IPRATROPIUM 0.5 INH SOL 3 ML VIAL.NEB. NEB ONE ×3 (08:21→15:31)
[2024-10-05] MEDS: ALBUTEROL SO4 2.5/IPRATROPIUM 0.5 INH SOL 3 ML VIAL.NEB. NEB SCH (08:31)
[2024-10-05] MEDS ORDERED: ASCORBIC ACID 500 MG TABLET (FP) ONE (08:40)
[2024-10-05] MEDS ORDERED: MULTIVITAMINS (DAILY MVI) TABLET (FP) ONE (08:40)
[2024-10-05] MEDS ORDERED: PANTOPRAZOLE 40 MG TABLET PO ONE (08:40)
[2024-10-05] MEDS ORDERED: CARBIDOPA/LEVODOPA 25/100 TABLET (FP) ONE (08:41)
[2024-10-05] MEDS ORDERED: ESCITALOPRAM OXALATE 10 MG TABLET ONE (08:41)
[2024-10-05] MEDS ORDERED: LEVOTHYROXINE NA 75 MCG TABLET (FP) ONE (08:41)
[2024-10-05] MEDS: LEVOTHYROXINE NA 75 MCG TABLET (FP) PO SCH (08:53)
[2024-10-05] MEDS: ASCORBIC ACID 500 MG TABLET (FP) PO SCH (09:22)
[2024-10-05] MEDS: CARBIDOPA/LEVODOPA 25/250 TABLET (FP) PO SCH (09:22)
[2024-10-05] MEDS: ESCITALOPRAM OXALATE 10 MG TABLET PO SCH (09:22)
[2024-10-05] MEDS: PANTOPRAZOLE 40 MG TABLET PO SCH (09:22)
[2024-10-05] MEDS: MULTIVITAMINS (DAILY MVI) TABLET (FP) PO SCH (09:22)
[2024-10-05 09:32] LABS: ANISOCYTOSIS 1+; MACROCYTOSIS 0
[2024-10-05] MEDS ORDERED: PIPERACILLIN/TAZOB 2.25 GM 2.25 GM in DEXTROSE 5%-WATER - 50 ML IVPB SCH (10:00)
[2024-10-05] MEDS ORDERED: VANCOMYCIN/WATER 1250 MG 1,250 MG/250 ML BAG IVPB ONE (12:30)
[2024-10-05] MEDS: VANCOMYCIN HCL IN 5 % DEXTROSE 1,250 MG/250 ML BAG IV SCH (12:46)
[2024-10-05 14:17] LABS: ARTERIAL BLD GAS O2 SATURATION 93.1 % (95-98); ARTERIAL BLOOD GAS BASE EXCESS 3.2 mmol/L (-2-2); ARTERIAL BLOOD GAS PO2 76.2 mmHg (80-100); ARTERIAL BLOOD GAS pH 7.278 (7.350-7.450)
[2024-10-05 14:25] LABS: ALLENS TEST POSITIVE
[2024-10-05] MEDS: methylPREDNISolone NA SUCC 40 MG/1 ML VIAL IVPUSH SCH (14:45)
[2024-10-05] MEDS ORDERED: methylPREDNISolone NA SUCC 40 MG/1 ML VIAL ONE (14:45)
[2024-10-05] MEDS: FLUTICASONE/UMECLIDIN/VILANTER(100-62.5-25 TRELEGY ELLIPTA) INAHLER IH SCH (14:46)
[2024-10-05] MEDS ORDERED: CARBIDOPA/LEVODOPA 25/250 TABLET (FP) ONE (15:31)
[2024-10-05] MEDS: HEPARIN NA (PORCINE) 5,000 UNITS/ML 1ML VIAL SQ SCH (23:21)
[2024-10-05] MEDS: BUDESONIDE/FORMETEROL FUMARATE 160/4.5 mcg INHALER IH SCH (23:41)
[2024-10-06 08:10] LABS: POTASSIUM 5.3 mmol/L (3.5-5.1)
[2024-10-06 08:15] LABS: CALCIUM 8.7 mg/dL (8.5-10.1)
[2024-10-06 08:19] LABS: CREATININE 1.8 mg/dL (0.55-1.3)
[2024-10-06 16:56] LABS: MAGNESIUM 2.1 mg/dL (1.8-2.4)
[2024-10-06 16:59] LABS: PHOSPHOROUS 5.7 mg/dL (2.5-4.9)
[2024-10-06 17:04] LABS: N-TERMINAL BNP 1532.6 pg/ml (5-450)
[2024-10-06] MEDS: FUROSEMIDE 40 MG/4 ML INJECTABLE VIAL IVPUSH ONE (17:34)
[2024-10-07] MEDS: PIPERACILLIN/TAZOB 3.375 GM 50 ML IVPB SCH (02:48)
[2024-10-07 08:34] LABS: HEMATOCRIT 30.6 % (32.4-45.2); HEMOGLOBIN 9.6 GM/dL (10.7-15.3); MCH 30.6 pg (25.7-33.7); MCHC 31.5 g/dl (32.0-36.0); MEAN CELL VOLUME 97.2 fl (80-96); MEAN PLT VOLUME 10.1 fl (7.5-11.1); PLATELET COUNT 165 10^3/uL (134-434); RBC 3.15 M/mm3 (3.60-5.2); RDW 16.7 % (11.6-15.6); WHITE BLOOD COUNT 7.4 K/mm3 (4.0-10.0)
[2024-10-07 08:46] LABS: POTASSIUM 4.9 mmol/L (3.5-5.1)
[2024-10-07 08:53] LABS: CALCIUM 8.5 mg/dL (8.5-10.1)
[2024-10-07 08:54] LABS: ALBUMIN 2.9 g/dl (3.4-5.0); BLOOD UREA NITROGEN 44.9 mg/dL (7-18)
[2024-10-07 08:58] LABS: BILIRUBIN,TOTAL 0.4 mg/dL (0.2-1)
[2024-10-07 08:59] LABS: TOT PROT 5.4 g/dl (6.4-8.2)
[2024-10-07 09:19] LABS: ANISOCYTOSIS 1+; MACROCYTOSIS 1+
[2024-10-07] MEDS ORDERED: PIPERACILLIN/TAZOB 2.25 GM 2.25 GM/50 ML BAG IVPB SCH (10:00)
[2024-10-08] MEDS: VANCOMYCIN HCL IN 5 % DEXTROSE 1,250 MG/250 ML BAG IV SCH (10:32)
[2024-10-08] MEDS: D5-1/2NS+20 MEQ KCL - 20 MEQ/1,000 ML INFUS.BAG IV SCH (13:20)
[2024-10-09 08:13] LABS: HEMATOCRIT 34.3 % (32.4-45.2); HEMOGLOBIN 10.9 GM/dL (10.7-15.3); MCH 31.6 pg (25.7-33.7); MCHC 31.7 g/dl (32.0-36.0); MEAN CELL VOLUME 99.8 fl (80-96); MEAN PLT VOLUME 10.4 fl (7.5-11.1); PLATELET COUNT 201 10^3/uL (134-434); RBC 3.44 M/mm3 (3.60-5.2); RDW 16.7 % (11.6-15.6); WHITE BLOOD COUNT 7.6 K/mm3 (4.0-10.0)
[2024-10-09 08:35] LABS: POTASSIUM 5.9 mmol/L (3.5-5.1)
[2024-10-09 08:52] LABS: ALBUMIN 3.1 g/dl (3.4-5.0); BLOOD UREA NITROGEN 58.6 mg/dL (7-18); CALCIUM 8.6 mg/dL (8.5-10.1)
[2024-10-09 08:55] LABS: CREATININE 2.9 mg/dL (0.55-1.3)
[2024-10-09 08:57] LABS: BILIRUBIN,TOTAL 0.5 mg/dL (0.2-1)
[2024-10-09 11:01] LABS: ANISOCYTOSIS 0; HELMET CELLS 0; HOWELL-JOLLY BODIES 0; MACROCYTOSIS 0; OVALOCYTE 0; ROULEAU 0; SICKELED CELLS 0; TARGET CELLS 0; TEAR DROP CELLS 0; TOXIC GRANULATION 0
[2024-10-09 14:02] VITALS: BMI 35.2
[2024-10-09] MEDS: SODIUM ZIRCONIUM CYCLOSILICATE (LOKELMA) 10 GM PACKET PO SCH (15:20)
[2024-10-09] MEDS: AMINO ACIDS 4.25%/D5W 1,000 ML IV SCH (15:21)
[2024-10-09] MEDS: SODIUM CHLORIDE 250 ML IV STA (15:31)
[2024-10-09] MEDS ORDERED: FAT EMULSIONS 20% 250 ML PREMIX INFUS.BAG IV SCH (22:00)
[2024-10-09] MEDS: FAT EMULSION/OLIVE/SOY/PHOSPHO 250 ML IV SCH (22:27)
[2024-10-10 09:55] VITALS: BP 104/59; PULSE 88; RESP 18; TEMP 98.8
[2024-10-10 10:47] LABS: POTASSIUM 5.5 mmol/L (3.5-5.1)
[2024-10-10 10:47] LABS: BASO % 0.3 % (0-2.0); EOS % 0.7 % (0-4.5); LYMPH % 4.1 % (8-40); MCH 31.1 pg (25.7-33.7); MCHC 31.1 g/dl (32.0-36.0); MEAN CELL VOLUME 99.7 fl (80-96); MEAN PLT VOLUME 10.1 fl (7.5-11.1); MONO % 11.5 % (3.8-10.2); NEUT % 83.4 % (42.8-82.8); PLATELET COUNT 155 10^3/uL (134-434); RBC 3.21 M/mm3 (3.60-5.2); RDW 16.4 % (11.6-15.6); WHITE BLOOD COUNT 11.2 K/mm3 (4.0-10.0)
[2024-10-10 10:57] LABS: ALBUMIN 2.7 g/dl (3.4-5.0); CALCIUM 8.1 mg/dL (8.5-10.1)
[2024-10-10 10:58] LABS: BLOOD UREA NITROGEN 83.1 mg/dL (7-18)
[2024-10-10 11:01] LABS: CREATININE 4.1 mg/dL (0.55-1.3)
[2024-10-10 11:02] LABS: BILIRUBIN,TOTAL 0.6 mg/dL (0.2-1); TOT PROT 5.6 g/dl (6.4-8.2)
[2024-10-10] MEDS: MORPHINE SULFATE/0.9% NACL/PF 100 MG/100 ML BAG IVPB SCH ×2 (11:12→12:39)
== END 2024-10-10 19:01 | disposition expired | DRG 189 ==
LOC: JER 20:54 → JERBED 23:41 → J4W 10-05 17:14
PROVIDERS: ADMIT Student in an Organized Health Care Education/Training Program; ATTEND Internal Medicine
DX: J96.02 Acute respiratory failure with hypercapnia (principal); J18.9 Pneumonia, unspecified organism; N17.9 Acute kidney failure, unspecified; E11.9 Type 2 diabetes mellitus without complications; G20.A1 Parkinson's disease without dyskinesia, without mention of fluctuations; F02.80 Dementia in other diseases classified elsewhere, unspecified severity, without behavioral disturbance, psychotic disturbance, mood disturbance, and anxiety; J96.01 Acute respiratory failure with hypoxia; E87.5 Hyperkalemia; I10 Essential (primary) hypertension
CPT/HCPCS: 0241U-QW; 36415; 36600; 71045-TC-FY; 76775-TC; 80048; 80053; 81003; 82570; 82803; 82962; 83605; 83735; 83880; 84100; 84300; 84484; 85025; 87040; 87081; 87086; 87899; 93005; 93010; 93306-TC; 94640; 94660; 99285-25; J1644